=== PATIENT | female | born 1990 | race Caucasian/White ===

== ENCOUNTER 2019-09-23 19:44 | Observation (INO) | payer BC ==
[~2019-09-23] VITALS: Ht 162.6 cm; Wt 86.2 kg
== END 2019-09-23 21:00 | disposition home or self-care (01) ==
LOC: SPU 19:44
PROVIDERS: ADMIT Obstetrics & Gynecology; ATTEND Obstetrics & Gynecology
DX: O26.893 Other specified pregnancy related conditions, third trimester (principal); R10.2 Pelvic and perineal pain; Z3A.35 35 weeks gestation of pregnancy
CPT/HCPCS: 81002; G0378

== ENCOUNTER 2019-10-08 04:30 | Inpatient (IN) | payer BC ==
[~2019-10-08] VITALS: Ht 162.6 cm; Wt 86.2 kg
[2019-10-08] MEDS: LR 1,000 ML IV SCH ×3 (06:34→16:45)
[2019-10-08 06:46] LABS: BASOPHILS # (AUTO) 0.1 K/uL (0.0-0.2); BASOPHILS % (AUTO) 0.8 % (0.0-2.0); EOSINOPHILS % (AUTO) 0.3 % (0.0-4.0); HEMATOCRIT 36.5 % (36-48); HEMOGLOBIN 12.2 g/dL (12.0-16.0); LYMPHOCYTES # (AUTO) 2.4 K/uL (1.0-5.5); MEAN CORPUSCULAR HEMOGLOBIN 28 pg (27-31); MEAN CORPUSCULAR HGB CONC 34 % (32-36); MEAN CORPUSCULAR VOLUME 85 fL (79.0-98.0); MONOCYTES # (AUTO) 0.5 K/uL (0.0-1.0); MONOCYTES % (AUTO) 4.6 % (1.7-9.3); NEUTROPHILS # (AUTO) 8.4 K/uL (1.8-7.7); NEUTROPHILS % (AUTO) 73.3 % (40.0-70.0); PLATELET COUNT (AUTO) 240 K/uL (130-430); RED BLOOD CELL COUNT(AUTO) 4.32 MIL/uL (4.2-6.2); RED CELL DISTRIBUTION WIDTH 14.4 % (9.0-15.0); WHITE BLOOD COUNT (AUTO) 11.5 K/uL (4.8-10.8)
[2019-10-08] MEDS ORDERED: LR 1,000 ML IV ONE (07:00)
[2019-10-08] MEDS ORDERED: TERBUTALINE SULFATE 1 MG/ML VIAL SUBCUT ONE (07:00)
[2019-10-08] MEDS ORDERED: ROPIVACAINE HCL/PF 0.2% 200 ML ONE (07:36)
[2019-10-08] MEDS ORDERED: fentaNYL CITRATE/PF 100 MCG/2 ML AMP ONE (07:36)
[2019-10-08] MEDS: OXYTOCIN/0.9 % SODIUM CHLORIDE 1,000 ML IV SCH (07:47)
[2019-10-08] MEDS ORDERED: DIPHENHYDRAMINE INJ 50 MG/ML VIAL IVP PRN (14:30)
[2019-10-08] MEDS ORDERED: LR 500 ML IV ONE ×2 (18:03→22:02)
[2019-10-08] MEDS ORDERED: FENT2mCg/mL-ROPIVA0.2%/NS EPID 200 ML EP SCH ×2 (18:15→22:15)
[2019-10-08 20:43] VITALS: BP_SYST 107
[2019-10-09] MEDS: OXYTOCIN/0.9 % SODIUM CHLORIDE 1,000 ML IV SCH (06:03)
[2019-10-09] MEDS ORDERED: MORPHINE 2 MG/ML INJ. SYRINGE IVP PRN (10:30)
[2019-10-09] MEDS: MISOPROSTOL 100 MCG TABLET (CYTOTEC) PO SCH ×2 (10:38→14:36)
[2019-10-09] MEDS: LR 1,000 ML IV SCH (10:38)
[2019-10-09] MEDS: MORPHINE SULFATE 10 MG/ML VIAL IVP PRN ×2 (12:23→17:04)
[2019-10-09] MEDS ORDERED: CEFAZOLIN 2 GM IVPB PREMIX 50 ML IV ONE (20:00)
[2019-10-09] MEDS ORDERED: LR 1,000 ML IV SCH ×2 (20:00→22:33)
[2019-10-09] MEDS ORDERED: fentaNYL CITRATE/PF 100 MCG/2 ML AMP IVP PRN ×2 (20:30)
[2019-10-09] MEDS ORDERED: ONDANSETRON HCL 4 MG/2 ML VIAL IVP PRN (20:30)
[2019-10-09] MEDS ORDERED: KETOROLAC TROMETHAMINE 60 MG/2 ML VIAL IM PRN (20:30)
[2019-10-09] MEDS ORDERED: NALOXONE HCL 0.4 MG/ML AMP (NARCAN) IVP PRN ×2 (20:30)
[2019-10-09] MEDS ORDERED: NALBUPHINE HCL 10 MG/ML AMP IVP PRN (20:30)
[2019-10-09] MEDS ORDERED: MORPHINE SULFATE 10MG/10ML PF AMP EP SCH (20:30)
[2019-10-09] MEDS ORDERED: METHYLERGONOVINE MALEATE 0.2 MG/ML AMP ONE (20:43)
[2019-10-09] MEDS ORDERED: MIDAZOLAM HCL 5 MG/ML VIAL (VERSED) IV ONE (21:00)
[2019-10-09] MEDS ORDERED: LR 1,000 ML IV.SOLN IV ONE (21:00)
[2019-10-09] MEDS ORDERED: TEMAZEPAM 15 MG CAPSULE PO PRN (21:00)
[2019-10-09] MEDS ORDERED: NS IRRIG SOLN 1000 ML IR ONE (21:00)
[2019-10-09] MEDS ORDERED: MORPHINE SULFATE 10MG/10ML PF AMP ONE (21:00)
[2019-10-09] MEDS ORDERED: fentaNYL CITRATE/PF 100 MCG/2 ML AMP ONE (21:40)
[2019-10-09] MEDS ORDERED: OXYTOCIN/0.9 % SODIUM CHLORIDE 1,000 ML IV ONE ×2 (21:57→22:33)
[2019-10-09] MEDS ORDERED: OXYCODONE/ACETAMINOPHEN 5-325 TABLET PO PRN (22:45)
[2019-10-09] MEDS ORDERED: HYDROcodone/ACETAMIN 5-325 MG TAB (NORCO/ VICODIN) PO PRN (22:45)
[2019-10-09] MEDS ORDERED: BISACODYL 10 MG/SUPPOSITORY RC PRN (22:45)
[2019-10-09] MEDS ORDERED: DIPH-TET-PERTUS Vaccine 0.5 ML VIAL (ADACEL) I.M. PRN (22:45)
[2019-10-09] MEDS ORDERED: LANOLIN 7 GM OINT. TP PRN (22:45)
[2019-10-09] MEDS ORDERED: ANUSOL 1 EA SUPP.RECT (PREPARATION H) RC PRN (22:45)
[2019-10-09] MEDS: DIPHENHYDRAMINE INJ 50 MG/ML VIAL IVP PRN (23:05)
[2019-10-10] MEDS: SIMETHICONE 80 MG TAB.CHEW PO PRN ×4 (01:16→20:54)
[2019-10-10] MEDS: DIPHENHYDRAMINE INJ 50 MG/ML VIAL IVP PRN (03:38)
[2019-10-10 05:59] LABS: BASOPHILS % (AUTO) 0.3 % (0.0-2.0); EOSINOPHILS % (AUTO) 0.2 % (0.0-4.0); HEMATOCRIT 28.2 % (36-48); HEMOGLOBIN 9.6 g/dL (12.0-16.0); LYMPHOCYTES # (AUTO) 1.8 K/uL (1.0-5.5); LYMPHOCYTES % (AUTO) 20.9 % (20.5-51.5); MEAN CORPUSCULAR HEMOGLOBIN 29 pg (27-31); MEAN CORPUSCULAR HGB CONC 34 % (32-36); MEAN CORPUSCULAR VOLUME 86 fL (79.0-98.0); MONOCYTES # (AUTO) 0.5 K/uL (0.0-1.0); MONOCYTES % (AUTO) 5.3 % (1.7-9.3); NEUTROPHILS # (AUTO) 6.4 K/uL (1.8-7.7); NEUTROPHILS % (AUTO) 73.3 % (40.0-70.0); PLATELET COUNT (AUTO) 159 K/uL (130-430); RED BLOOD CELL COUNT(AUTO) 3.29 MIL/uL (4.2-6.2); RED CELL DISTRIBUTION WIDTH 14.4 % (9.0-15.0); WHITE BLOOD COUNT (AUTO) 8.7 K/uL (4.8-10.8)
[2019-10-10] MEDS ORDERED: FLU VACC QS2019-20 36MOS UP/PF 60 MCG/0.5 ML SYRINGE I.M. PRN (08:00)
[2019-10-10] MEDS: OXYCODONE/ACETAMINOPHEN 5-325 TABLET PO PRN ×3 (10:31→20:55)
[2019-10-10] MEDS: IBUPROFEN 600 MG TABLET PO SCH ×2 (18:02→23:40)
[2019-10-10] MEDS: DOCUSATE SODIUM 100 MG CAPSULE PO PRN (18:03)
[2019-10-10] MEDS: SENNOSIDES/DOCUSATE SODIUM 1 TAB TABLET(SENOKOT-S) PO PRN (20:54)
[2019-10-11] MEDS: SIMETHICONE 80 MG TAB.CHEW PO PRN (03:34)
[2019-10-11] MEDS: OXYCODONE/ACETAMINOPHEN 5-325 TABLET PO PRN ×5 (03:35→23:26)
[2019-10-11] MEDS: DOCUSATE SODIUM 100 MG CAPSULE PO PRN (03:35)
[2019-10-11] MEDS: IBUPROFEN 600 MG TABLET PO SCH ×3 (05:18→17:47)
[2019-10-12] MEDS: IBUPROFEN 600 MG TABLET PO SCH ×5 (00:01→12:27)
[2019-10-12] MEDS: SIMETHICONE 80 MG TAB.CHEW PO PRN ×3 (00:10→12:26)
[2019-10-12] MEDS: DOCUSATE SODIUM 100 MG CAPSULE PO PRN ×3 (00:11→12:26)
[2019-10-12] MEDS: OXYCODONE/ACETAMINOPHEN 5-325 TABLET PO PRN (06:07)
[2019-10-12] MEDS ORDERED: BUPIVACAINE /PF 0.5% 30 ML VIAL EP ONE (11:04)
[2019-10-12] MEDS: SENNOSIDES/DOCUSATE SODIUM 1 TAB TABLET(SENOKOT-S) PO PRN (12:26)
== END 2019-10-12 13:56 | disposition home or self-care (01) | DRG 788 ==
LOC: SPU 04:30 → OBSVTOIN 06:15
PROVIDERS: ADMIT Obstetrics & Gynecology; ATTEND Obstetrics & Gynecology
PROC: 10D00Z1 Extraction of Products of Conception, Low, Open Approach (ICD-10-PCS; principal; 2019-10-09 19:50)
DX: O69.81X0 Labor and delivery complicated by cord around neck, without compression, not applicable or unspecified (principal); Z3A.38 38 weeks gestation of pregnancy; Z37.0 Single live birth
CPT/HCPCS: 36415; 81002-TC; 85025; 86592; 86886; 86900; 86901; 90715; 94760; G0378; J0690; J1200; J1885; J2210; J2250; J2270; J2274; J2590; J3010; J3490; J7120